=== PATIENT | female | born 1975 | race Caucasian/White ===

== ENCOUNTER 2018-08-17 18:33 | Emergency (ER) | payer BC ==
[~2018-08-17] VITALS: Ht 162.6 cm; Wt 110.0 kg
[~2018-08-17 18:33] MED LIST: BUPR200T31 PO; DULO30CA2 PO; FURO-93 PO; GABA-827 PO; MELO15TA24 PO; PRAV10TA2 PO; TRAZ-137 PO
[2018-08-17 19:29] LABS: BASOPHILS # (AUTO) 0.05 x10^3/uL (0-0.1); BASOPHILS % (AUTO) 0 % (0-1); EOSINOPHILS # (AUTO) 0.15 x10^3/uL (0-0.4); EOSINOPHILS % (AUTO) 1 % (1-7); LYMPHOCYTES # (AUTO) 2.61 x10^3/uL (1-3.4); LYMPHOCYTES % (AUTO) 23 % (22-44); MD NO; MEAN CORPUSCULAR HEMOGLOBIN 32.1 pg (27.0-34.8); MEAN CORPUSCULAR HGB CONC 34.5 g/dL (32.4-35.8); MEAN PLATELET VOLUME 8.1 fL (7.4-10.4); MONOCYTES # (AUTO) 0.61 x10^3/uL (0.2-0.8); MONOCYTES % (AUTO) 5 % (2-9); NEUTROPHILS # (AUTO) 8.03 x10^3/uL (1.8-6.8); NEUTROPHILS % (AUTO) 70 % (42-75); PLATELET COUNT 336 x10^3/uL (130-400); RED BLOOD COUNT 4.27 x10^6/uL (3.82-5.3); RED CELL DISTRIBUTION WIDTH 13.6 % (9.6-15.2)
[2018-08-17 19:34] LABS: ALANINE AMINOTRANSFERASE 22 U/L (12-78); ALBUMIN 3.4 g/dL (3.4-5.0); ANION GAP 7 mmol/L (5-15); CALCIUM 8.4 mg/dL (8.5-10.1); CHLORIDE 105 mmol/L (98-107); CREATININE 1.15 mg/dL (0.55-1.02)
[2018-08-17 19:39] LABS: ALKALINE PHOSPHATASE 67 U/L (45-117); BILIRUBIN,TOTAL 0.3 mg/dL (0.2-1.0); TOTAL PROTEIN 7.4 g/dL (6.4-8.2); TROPONIN I < 0.015 ng/mL (0.000-0.045)
[2018-08-17 19:49] LABS: MICROSCOPIC NOT IND
[2018-08-17 20:00] VITALS: BP 129/66
[2018-08-17 20:16] LABS: CULTURE INDICATED? NO
== END 2018-08-17 21:39 | disposition home or self-care (01) ==
LOC: ED 20:00
DX: R07.2 Precordial pain (principal); E78.5 Hyperlipidemia, unspecified; E78.00 Pure hypercholesterolemia, unspecified; Z90.710 Acquired absence of both cervix and uterus
CPT/HCPCS: 36415; 71045; 80053; 81003; 84484; 84703; 85025; 93005; 99285

== ENCOUNTER 2020-06-23 18:46 | Emergency (ER) | payer BC ==
[~2020-06-23] VITALS: Ht 160 cm; Wt 117.8 kg
[~2020-06-23 18:46] MED LIST changes: -TRAZ-137 PO; +TRAZ-175 PO
[2020-06-23] MEDS ORDERED: PROCHLORPERAZINE 5 MG/ML, 2ML IM ONE (19:30)
[2020-06-23] MEDS ORDERED: DIPHENHYDRAMINE 25 MG CAPSULE PO ONE (19:30)
[2020-06-23] MEDS ORDERED: KETOROLAC 30 MG/1 ML IM ONE (19:30)
[2020-06-23] MEDS ORDERED: DIPHENHYDRAMINE 50 MG/ML, 1ML IVPush ONE (21:00)
[2020-06-23] MEDS ORDERED: SODIUM CHLORIDE 0.9% 1,000ML IVBOLUS ONE (21:00)
[2020-06-23] MEDS ORDERED: METOCLOPRAMIDE 5 MG/ML, 2ML IVPush ONE (21:00)
[2020-06-23] MEDS ORDERED: KETOROLAC 30 MG/1 ML IVPush ONE (21:00)
[2020-06-23] MEDS ORDERED: PROCHLORPERAZINE 5 MG/ML, 2ML ONE (21:05)
[2020-06-23] MEDS ORDERED: KETOROLAC 30 MG/1 ML ONE (21:05)
[2020-06-23] MEDS ORDERED: DIPHENHYDRAMINE 50 MG/ML, 1ML ONE (21:06)
--- NOTE | 2020-06-23 21:15 | NUR ---
LATE ENTRY: PT STATES SHE HAS SHARP SHOOTING PAINS ON THE RIGHT SIDE OF HEAD. STATES THEY HAVE HAPPENED FOR YEARS BUT TONIGHT THEY WERE MORE FREQUENT AND WOULD NOT CEASE. PT GROSS NEURO INTACT. PULSES 2+, SKIN P/W/D, AT BS. NAD VSS. WCTM PLACED ON BP/SPO2 MONITORING.
[2020-06-23] MEDS ORDERED: TRAZ-175 PO (21:21)
[2020-06-23] MEDS ORDERED: METOCLOPRAMIDE 5 MG/ML, 2ML ONE (21:32)
--- NOTE | 2020-06-23 22:06 | NUR ---
PT STATES SHE IS EXTREMELY ANXIOUS AND WANTS TO LEAVE. STATES HEAD PAINS ARE GONE. NOTIFIED. PT TO BE DC. JEREMIAHTM
[2020-06-23 22:18] VITALS: BP 145/72
--- NOTE | 2020-06-23 22:19 | NUR ---
Patient given discharge instructions and they have confirmed that they understand the instructions. Patient ambulatory with steady gait. NO BELONGINGS LEFT IN ROOM AT TIME OF DC. NAD. VSS. P/W/D. DENIES ADDITIONAL QUESTIONS OR NEEDS AT THIS TIME.
== END 2020-06-23 22:20 | disposition home or self-care (01) ==
LOC: ED 19:16
DX: G43.C0 Periodic headache syndromes in child or adult, not intractable (principal); E78.5 Hyperlipidemia, unspecified; Z90.710 Acquired absence of both cervix and uterus
CPT/HCPCS: 70450; 96374; 96375; 99284; J1200; J1885; J2765; J7030

== ENCOUNTER 2021-03-27 19:17 | Emergency (ER) | payer BC ==
[~2021-03-27] VITALS: Ht 162.6 cm; Wt 109.9 kg
--- NOTE | 2021-03-27 19:38 | NUR ---
Task RN: Patient presents to ER c/o left upper back pain radiating to left side and center of chest. Patient states the sharp pain is intermittent and she has nausea with it. Denies vomiting or SOB. Patient has no cardiac hx; hx of fibromyalgia but this pain is different. Patient went to the chiropractor with no relief. Patient is in NAD. Respirations even and unlabored.
[2021-03-27] MEDS ORDERED: FAMOTIDINE 20 MG TABLET ONE (20:18)
[2021-03-27] MEDS ORDERED: KETOROLAC 30 MG/1 ML ONE (20:18)
[2021-03-27] MEDS ORDERED: ONDANSETRON ODT 4 MG ONE (20:18)
--- NOTE | 2021-03-27 20:22 | NUR ---
XRAY AT BEDSIDE AT THIS TIME
[2021-03-27] MEDS ORDERED: METHOCARBAMOL 750 MG TABLET ONE (20:29)
[2021-03-27] MEDS ORDERED: METHOCARBAMOL 750 MG TABLET PO ONE (20:30)
[2021-03-27] MEDS ORDERED: KETOROLAC 30 MG/1 ML IM ONE (20:30)
[2021-03-27] MEDS ORDERED: ONDANSETRON ODT 4 MG PO ONE (20:30)
[2021-03-27] MEDS ORDERED: FAMOTIDINE 20 MG TABLET PO ONE (20:30)
--- NOTE | 2021-03-27 20:33 | NUR ---
PT MEDICATED PER FEB 01 RIGHTS VERIFIED
[2021-03-27 20:57] LABS: BASOPHILS % (AUTO) 1 % (0-1); EOSINOPHILS % (AUTO) 2 % (1-7); LYMPHOCYTES % (AUTO) 23 % (22-44); MEAN CORPUSCULAR HEMOGLOBIN 31.3 pg (27.0-34.8); MEAN CORPUSCULAR HGB CONC 33.7 g/dL (32.4-35.8); MEAN PLATELET VOLUME 8.6 fL (7.4-10.4); MONOCYTES % (AUTO) 6 % (2-9); NEUTROPHILS % (AUTO) 69 % (42-75); PLATELET COUNT 312 x10^3/uL (130-400); RED CELL DISTRIBUTION WIDTH 13.3 % (9.6-15.2)
[2021-03-27 20:59] LABS: MD NO
[2021-03-27 21:08] LABS: ALANINE AMINOTRANSFERASE 29 U/L (12-78); ALBUMIN 3.4 g/dL (3.4-5.0); ANION GAP 4 mmol/L (5-15); CALCIUM 8.7 mg/dL (8.5-10.1); CHLORIDE 110 mmol/L (98-107); CREATININE 0.76 mg/dL (0.55-1.02)
[2021-03-27 21:12] LABS: ALKALINE PHOSPHATASE 60 U/L (45-117); BILIRUBIN,TOTAL 0.2 mg/dL (0.2-1.0); TOTAL PROTEIN 6.8 g/dL (6.4-8.2); TROPONIN I < 0.015 ng/mL (0.000-0.045)
--- NOTE | 2021-03-27 21:17 | NUR ---
ALL RESULTS BACK CHART UP FOR RCK, AWAITING DISPO AT THIS TIME
[2021-03-27 21:43] VITALS: BP 110/62
--- NOTE | 2021-03-27 21:43 | NUR ---
Patient/Caregiver given discharge instructions and they have confirmed that they understand the instructions. Patient ambulatory with steady gait.
== END 2021-03-27 21:45 | disposition home or self-care (01) ==
LOC: ED 20:51
DX: R07.89 Other chest pain (principal); R11.0 Nausea; R10.9 Unspecified abdominal pain; R94.31 Abnormal electrocardiogram [ECG] [EKG]
CPT/HCPCS: 36415; 71045; 80053; 83690; 84484; 85025; 85379; 93005; 96372; 99285; J1885; Q0162

== ENCOUNTER 2021-04-30 03:00 | Emergency (ER) | payer BC ==
[~2021-04-30] VITALS: Ht 160 cm; Wt 109.6 kg
[2021-04-30 03:04] VITALS: BP 152/86
[2021-04-30] MEDS ORDERED: LIDODERM 5% PATCH TD ONE ×2 (03:37→04:00)
[2021-04-30] MEDS ORDERED: DIAZEPAM 5 MG/ML, 2ML ONE (03:37)
[2021-04-30] MEDS ORDERED: KETOROLAC 30 MG/1 ML ONE (03:37)
[2021-04-30 03:55] LABS: BASOPHILS % (AUTO) 1 % (0-1); EOSINOPHILS % (AUTO) 1 % (1-7); LYMPHOCYTES % (AUTO) 24 % (22-44); MEAN CORPUSCULAR HEMOGLOBIN 31.6 pg (27.0-34.8); MEAN CORPUSCULAR HGB CONC 34.2 g/dL (32.4-35.8); MEAN PLATELET VOLUME 8.4 fL (7.4-10.4); MONOCYTES % (AUTO) 5 % (2-9); NEUTROPHILS % (AUTO) 69 % (42-75); PLATELET COUNT 303 x10^3/uL (130-400); RED BLOOD COUNT 4.52 x10^6/uL (3.82-5.3); RED CELL DISTRIBUTION WIDTH 12.5 % (9.6-15.2)
[2021-04-30 03:57] LABS: MD NO
[2021-04-30] MEDS ORDERED: KETOROLAC 30 MG/1 ML IM ONE (04:00)
[2021-04-30] MEDS ORDERED: DIAZEPAM 5 MG/ML, 10ML VIAL IM ONE (04:00)
[2021-04-30 04:05] LABS: ALBUMIN 3.4 g/dL (3.4-5.0); ANION GAP 4 mmol/L (5-15); CALCIUM 8.5 mg/dL (8.5-10.1); CHLORIDE 108 mmol/L (98-107); CREATININE 0.97 mg/dL (0.55-1.02)
[2021-04-30 04:09] LABS: TROPONIN I < 0.015 ng/mL (0.000-0.045)
== END 2021-04-30 05:03 | disposition home or self-care (01) ==
LOC: ED 03:25
DX: S29.012A Strain of muscle and tendon of back wall of thorax, initial encounter (principal); R07.89 Other chest pain; R11.0 Nausea; E78.5 Hyperlipidemia, unspecified; X58.XXXA Exposure to other specified factors, initial encounter; Y93.89 Activity, other specified; Y92.89 Other specified places as the place of occurrence of the external cause; Y99.8 Other external cause status
CPT/HCPCS: 36415; 71045; 80048; 82040; 84484; 85025; 93005; 96372; 99285; J1885; J3360